=== PATIENT | male | born 1960 | race Caucasian/White ===

== ENCOUNTER 2019-08-31 09:00 | Inpatient (IN) ==
--- NOTE | 2019-08-17 17:29 | EKG Report ---
Test Performed on : 08/17/2019 5:05:10 PM Test Reason : PAT Blood Pressure : / mmHG Vent. Rate : 070 BPM Atrial Rate : 070 BPM P-R Int : 200 ms QRS Dur : 102 ms QT Int : 392 ms P-R-T Axes : 000 043 002 degrees QTc Int : 423 ms Normal sinus rhythm. Nonspecific ST and T wave abnormality Abnormal ECG When compared with ECG of 08-DEC-2017 12:15, ST now depressed in Inferior leads T wave inversion now evident in Inferior leads Confirmed by Lincoln Dougherty MD ([id number]) on 08/17/2019 7:53:42 PM
[2019-08-17 18:06] LABS: URINE SOURCE CLEAN CATCH
[2019-08-17 18:17] LABS: BASO# 0.04 X1000 (0.0-0.2); BASO% 0.5 % (0.0-0.8); EOS# 0.15 X1000 (0.0-0.7); EOS% 1.7 % (0.0-10.0); HEMATOCRIT 43.7 % (42.0-52.0); HEMOGLOBIN 13.9 g/dL (14.0-18.0); IMM GRAN# 0.19 X1000 (0.0-0.04); IMM GRAN% 2.2 % (0.0-0.5); LYMPH# 1.99 X1000 (1.2-3.4); LYMPH% 23.1 % (20.5-51.1); MCH 25.4 PG (27-31); MCHC 31.8 g/dL (33-37); MCV 79.7 FL (81-99); MONO# 0.73 X1000 (0.11-0.59); MONO% 8.5 % (1.7-9.3); MPV 10.4 FL (7.4-10.4); PLT 240 X1000 (130-400); RBC 5.48 XMIL (4.7-6.1); RDW 17.8 % (11.5-14.5)
[2019-08-17 18:21] LABS: INR 1.76; PROTIME 20.9 Seconds (11.0-16.0)
[2019-08-17 18:22] LABS: BILIRUBIN URINE NEGATIVE (NEGATIVE); BLOOD URINE NEGATIVE (NEGATIVE); COLOR YELLOW; GLUCOSE URINE NEGATIVE (NEGATIVE); HEMOGLOBIN A1C 8.3 % (4.8-6.0); KETONE URINE NEGATIVE (NEGATIVE); LEUKOCYTES URINE NEGATIVE (NEGATIVE); NITRITE URINE NEGATIVE (NEGATIVE); PH URINE 6.5; PROTEIN URINE NEGATIVE (NEGATIVE); PTT 36.8 Seconds (22.3-41.8); SP GRAVITY URINE 1.013; TURBIDITY URINE CLEAR (CLEAR); UROBILINOGEN URINE NORMAL (NORMAL)
[2019-08-17 18:23] LABS: UR EPITHELIAL CELLS <10 /HPF (<10); URINE BACTERIA NEGATIVE /HPF; URINE RBC <10 /HPF (<10); URINE WBC <10 /HPF (<10)
[2019-08-17 18:29] LABS: AGAP 13; ALBUMIN 4.4 g/dL (3.5-5.0); BUN 12 mg/dL (8-22); CHLORIDE 95 mmol/L (98-107); COSMO 274; CREATININE 0.7 mg/dL (0.7-1.2); ESTIMATED GFR > 60; GLUCOSE 208 mg/dL (70-104); POTASSIUM 3.8 mmol/L (3.5-5.1); SODIUM 134 mmol/L (136-145); TCO2 26 mmol/L (25-35)
[~2019-08-31 09:00] MED LIST: DIPRIVAN 1% ONE; VERSED ONE
[2019-08-31] MEDS ORDERED: CELEBREX ONE (09:22)
[2019-08-31] MEDS ORDERED: REGLAN ONE (09:22)
[2019-08-31] MEDS ORDERED: LYRICA ONE (09:22)
[2019-08-31] MEDS ORDERED: COLACE ONE (09:22)
[2019-08-31] MEDS ORDERED: PEPCID ONE (09:22)
[2019-08-31] MEDS ORDERED: KEFZOL 2 GM/D5W 2 GM/50 ML IVPB ONE (09:23)
[2019-08-31] MEDS ORDERED: LR 1,000 ML ONE (09:23)
[2019-08-31] MEDS ORDERED: DURAMORPH ONE (10:41)
[2019-08-31] MEDS ORDERED: TORADOL ONE (10:41)
[2019-08-31] MEDS ORDERED: SODIUM CHLORIDE 0.9% ONE (10:42)
[2019-08-31] MEDS ORDERED: EXPAREL 1.3% ONE (10:42)
[2019-08-31] MEDS ORDERED: NEOSPORIN G.U. IRRIGANT ONE (10:42)
[2019-08-31] MEDS ORDERED: VANCOMYCIN ONE (10:42)
[2019-08-31] MEDS ORDERED: MARCAINE 0.25% PF/EPI 1:200,000 ONE (10:42)
[2019-08-31] MEDS ORDERED: FENTANYL ONE (11:07)
[2019-08-31] MEDS ORDERED: OFIRMEV 1000 MG/ISOTONIC SOLN 1,000 MG/100 ML BOTTLE ONE (11:12)
[2019-08-31] MEDS ORDERED: DECADRON ONE (11:12)
[2019-08-31] MEDS ORDERED: ZOFRAN ONE (11:12)
[2019-08-31] MEDS: CYKLOKAPRON 1,000 MG/NS 2,000 MG/200 ML IVPB ONE ×2 (11:25→13:05)
[2019-08-31 12:06] LABS: URINE SOURCE CATH
[2019-08-31 12:18] LABS: BILIRUBIN URINE NEGATIVE (NEGATIVE); BLOOD URINE NEGATIVE (NEGATIVE); COLOR YELLOW; GLUCOSE URINE 100 mg/dL (NEGATIVE); KETONE URINE NEGATIVE (NEGATIVE); LEUKOCYTES URINE SMALL (NEGATIVE); NITRITE URINE NEGATIVE (NEGATIVE); PH URINE 6.5; PROTEIN URINE 50 mg/dL (NEGATIVE); SP GRAVITY URINE 1.021; TURBIDITY URINE CLEAR (CLEAR); UROBILINOGEN URINE NORMAL (NORMAL)
[2019-08-31 12:20] LABS: UR EPITHELIAL CELLS >10 /HPF (<10); URINE BACTERIA NEGATIVE /HPF; URINE RBC <10 /HPF (<10); URINE WBC <10 /HPF (<10)
[2019-08-31] MEDS ORDERED: DIPRIVAN 1% ONE (12:21)
[2019-08-31] MEDS ORDERED: NS 1,000 ML ONE (13:55)
[2019-08-31] MEDS: NS 1,000 ML IV SCH (14:45)
--- NOTE | 2019-08-31 14:55 | OPERATIVE NOTE ---
PROCEDURE DATE: 08/31/2019 PREOPERATIVE DIAGNOSIS: Degenerative arthritis right knee. POSTOPERATIVE DIAGNOSIS: Degenerative arthritis right knee. PROCEDURE: Right total knee arthroplasty with Attune size 8 posterior stabilized femur, size 8 tibial tray, a 7 mm rotating platform tibial insert, and a 41 mm medialized anatomic patella. SURGEON: Alena Altamirano. SPOOL HAULER: NELLY Matthews who was necessary for proper retraction, manipulation of the extremity during the case and improved efficiency. SECOND PUNCHBOARD INSERTER: Sd Ryan RN. ANESTHESIA: Spinal. IV FLUIDS: 1000 mL lactated Ringer's. ESTIMATED BLOOD LOSS: 50 mL. TOURNIQUET TIME: 95 minutes at 300 mmHg. INDICATION: The patient is a 59-year-old male, with longstanding history of pain and discomfort of his right knee. He has continued with his pain and discomfort and his pain has progressed to affect his activities of daily living. X-rays revealed degenerative osteoarthritis. Recommendation to proceed with right total knee arthroplasty was offered. The risks and benefits of surgery were explained, including the risks of anesthesia, , bleeding, infection, failure to relieve pain postoperative stiffness, nerve injury, blood clots, and other imponderables. All questions were answered and the patient and family wished to proceed with surgery. DESCRIPTION OF OPERATION: The patient was taken to the operative taken operating room and underwent spinal anesthesia. After adequate anesthesia was obtained, patient's left lower extremity was prepped and draped in sterile fashion. Esmarch was used to exsanguinate the left lower extremity and the tourniquet was inflated to 300 mmHg. A standard anterior incision was made with skin knife. Medial and lateral skin envelopes were developed. Standard medial parapatellar arthrotomy was then performed. Patella fat pad was excised. Retractor was then placed. Approximately 1 cm anterior to the PCL insertion, a starting reamer was passed. Intramedullary guide with a distal femoral cutting block was pinned in position. Distal femoral cut was then performed in standard fashion. A sizing block was placed and measured to size 8. Corresponding pins were placed. A size 8 chamfer guide cutting block was pinned in position. Anterior, posterior, and chamfer cuts were then made. Attention then turned to the proximal tibia where using the extramedullary guide. The proximal tibia cutting block was pinned in position and had good alignment confirmed with the alignment harpreet. The proximal tibia was then resected. Medial and lateral menisci were excised. A curved osteotome was used was used to remove the posterior osteophytes off the distal femur. A spacer block was then placed and a good soft tissue balancing. Attention turned back to the proximal tibia where a size 8 tibial tray appeared to be the correct size. This was pinned in the pinned in position. This was followed by a central reamer and a box cutting jig once our a box cutting guide was pinned on the distal femur. A box cut was performed. A trial femoral component was then placed. Two lug holes were drilled. Trial tibial insert was then placed. It had good soft tissue balancing. Patella was everted earlier a protective disk had bee placed and protective disk was removed at this time and a size 41 appeared to be correct size. The holes were drilled. A trial patella component was then placed and had good patellofemoral tracking. The patellar components were then removed. Copious irrigation performed with antibiotic pulsatile lavage. Vancomycin was mixed with cement onto the back table. Sequential cementing was then performed first with the tibial tray and excess cement was removed with a [place] followed by femoral component was impacted in position and excess cement was removed with a [place]. A trial tibial insert was then placed in full extension. Axial loading was maintained while cement cured. The peripheral cement was removed small osteotome. Patella component was then cemented in standard fashion. A patellar clamp was placed. While cement curing Exparel was placed in deep soft tissue, as well as subcutaneous tissue. After cement had cured peripheral cement was removed with a small osteotome. The 7 mm rotating platform insert appeared to correct size. The trial insert was removed. Exparel was placed in the deep posterior capsule. Copious irrigation was then performed once again with antibiotic pulsatile lavage. This was followed by a 7 mm rotating platform tibial insert. The knee was then carried through range of motion. Good range of motion, good soft tissue balance, good patellofemoral tracking. A 1/8 Hemovac drain was placed and was not sewn in. Copious irrigation was performed once again with antibiotic pulsatile lavage. Number 1 Vicryl was then used to repair the arthrotomy followed by 2- 0 Vicryl to repair subcutaneous tissue followed by skin ignacio. Adaptic, sterile 4 x 4's, Webril, cryo unit, Ajith wrap was applied to the left lower extremity. The patient tolerated the procedure well was transferred to the recovery room in stable condition. cc: Kun Kern MD
[2019-08-31] MEDS ORDERED: OXY IR PO PRN (15:00)
[2019-08-31] MEDS ORDERED: ZOFRAN PO PRN (15:00)
[2019-08-31] MEDS ORDERED: MORPHINE IV PRN ×3 (15:00)
--- NOTE | 2019-08-31 16:29 | Diag Imaging Result Doc PS360 ---
EXAM: KNEE 1-2 VIEWS-RIGHT HISTORY: right TKA TECHNIQUE: Two views COMPARISON: None. FINDINGS: Status post right total knee arthroplasty. No adverse features. There is a surgical drain. There are skin ignacio. IMPRESSION: No adverse features postoperative right total knee arthroplasty. Electronically signed by Claudia Ivan 08/31/2019 4:26 PM
[2019-08-31] MEDS: OXY IR PO PRN ×2 (18:14→21:19)
[2019-08-31] MEDS: TYLENOL PO SCH (18:20)
[2019-08-31] MEDS ORDERED: PRILOSEC PO SCH (21:00)
[2019-08-31] MEDS ORDERED: LANTUS INSULIN SUBQ SCH (21:00)
[2019-08-31] MEDS: COLACE PO SCH (21:19)
[2019-08-31] MEDS: KEFZOL 2 GM/D5W 2 GM/50 ML IVPB IV SCH (21:20)
[2019-09-01] MEDS: OXY IR PO PRN ×5 (00:12→12:29)
[2019-09-01] MEDS: TYLENOL PO SCH ×2 (00:12→06:21)
[2019-09-01] MEDS: KEFZOL 2 GM/D5W 2 GM/50 ML IVPB IV SCH (03:09)
[2019-09-01] MEDS ORDERED: XARELTO PO SCH (06:00)
--- NOTE | 2019-09-01 06:24 | ORTHOPAEDICS PROGRESS NOTE ---
DATE: 09/01/2019 SUBJECTIVE: The patient is a pleasant 59-year-old male, who is 1 day status post right total knee arthroplasty. He is currently resting comfortably. PHYSICAL EXAMINATION: The patient's right lower extremity wound looks good. There is no sign or symptom of infection. His calf is soft. He has active dorsiflexion and plantarflexion. He is neurovascularly intact distally. DIAGNOSTIC DATA: His labs are pending. IMPRESSION: Postoperative day #1 status post right total knee arthroplasty. PLAN: We will plan on discharging home after physical therapy. cc: Kun Kern MD
[2019-09-01 06:36] LABS: HEMATOCRIT 39.2 % (42.0-52.0); HEMOGLOBIN 12.8 g/dL (14.0-18.0)
[2019-09-01] MEDS: NS 1,000 ML IV SCH (06:42)
[2019-09-01 06:51] LABS: AGAP 11; BUN 16 mg/dL (8-22); CALCIUM 8.5 mg/dL (8.8-10.2); CHLORIDE 100 mmol/L (98-107); COSMO 281; CREATININE 0.8 mg/dL (0.7-1.2); ESTIMATED GFR > 60; GLUCOSE 272 mg/dL (70-104); POTASSIUM 4.2 mmol/L (3.5-5.1); SODIUM 135 mmol/L (136-145); TCO2 24 mmol/L (25-35)
[2019-09-01] MEDS ORDERED: GLUCOPHAGE PO SCH (08:00)
[2019-09-01] MEDS ORDERED: CARDIZEM CD PO SCH (09:00)
[2019-09-01] MEDS ORDERED: JANUVIA PO SCH (09:00)
[2019-09-01] MEDS ORDERED: HYDROCHLOROTHIAZIDE PO SCH (09:00)
[2019-09-01] MEDS ORDERED: COZAAR PO SCH (09:00)
[2019-09-01] MEDS ORDERED: PERIDEX MT SCH (09:00)
[2019-09-01] MEDS: COLACE PO SCH (09:23)
[2019-09-01 12:00] VITALS: BP 152/82
== END 2019-09-01 13:16 | disposition home or self-care (01) | DRG 470 ==
LOC: OR 09:00 → 4N 09:00 → OBSVTOIN 11:09
PROVIDERS: ADMIT Orthopaedic Surgery Adult Reconstructive Orthopaedic Surgery; ATTEND Orthopaedic Surgery Adult Reconstructive Orthopaedic Surgery